=== PATIENT | female | born 1990 | race Caucasian/White ===

== ENCOUNTER 2017-10-16 23:58 | Inpatient (IN) | payer BC, OTHER ==
[2017-10-17] MEDS: ASPIRIN CHEWABLE 81 MG TABLET. PO (00:26)
[2017-10-17 00:37] LABS: BASO # 0.2 x10^3/uL (0.0-0.2); BASO % 2 % (0-3); EOS # 1.1 x10^3/uL (0.0-0.7); EOS % 9 % (0-3); HEMATOCRIT 40.2 % (36.0-47.0); HEMOGLOBIN 13.5 g/dL (12.0-15.5); LYMPH % 33 % (24-48); MEAN CORPUSCULAR HEMOGLOBIN 30 pg (25-35); MEAN CORPUSCULAR HGB CONC 34 g/dL (31-37); MEAN CORPUSCULAR VOLUME 89 fL (79-100); MONO # 0.7 x10^3/uL (0.0-1.1); MONO % 6 % (0-9); NEUT # 6.1 x10^3uL (1.8-7.7); NEUT % 51 % (31-73); PLATELET COUNT 276 x10^3/uL (140-400); RED BLOOD COUNT 4.51 x10^6/uL (3.50-5.40); RED CELL DISTRIBUTION WIDTH 15.1 % (11.5-14.5); WHITE BLOOD COUNT 12.1 x10^3/uL (4.0-11.0)
[2017-10-17 00:40] LABS: ADD MAN DIFF? YES
[2017-10-17] MEDS: IV NORMAL SALINE 1000ML BAG 1,000 ML IV ×4 (00:44→08:55)
[2017-10-17 00:46] LABS: ANION GAP 9 (6-14); BLOOD UREA NITROGEN 10 mg/dL (7-20); BUN/CREATININE RATIO 14 (6-20); CALCIUM 9.2 mg/dL (8.5-10.1); CARBON DIOXIDE 26 mmol/L (21-32); CHLORIDE 104 mmol/L (98-107); CREATININE 0.7 mg/dL (0.6-1.0); GFR 100.4; GLUCOSE 165 mg/dL (70-99); POTASSIUM 3.8 mmol/L (3.5-5.1); SODIUM 139 mmol/L (136-145)
[2017-10-17 00:52] LABS: ALBUMIN 3.6 g/dL (3.4-5.0); ALBUMIN/GLOBULIN RATIO 0.8 (1.0-1.7); ALK PHOS 28 U/L (46-116); ALT (SGPT) 33 U/L (14-59); AST (SGOT) 17 U/L (15-37); TOTAL BILIRUBIN 0.1 mg/dL (0.2-1.0); TOTAL PROTEIN 7.9 g/dL (6.4-8.2)
[2017-10-17 00:53] LABS: TROPONINI < 0.017 ng/mL (0.000-0.055)
[2017-10-17 00:59] LABS: THYROID STIM HORMONE (TSH) 4.161 uIU/mL (0.358-3.74)
[2017-10-17] MEDS ORDERED: CONTRAST GIVEN MC (01:15)
[2017-10-17 01:20] LABS: % BASOS 1 % (0-3); % EOS 5 % (0-5); % LYMPHS 33 % (24-48); % MONOS 5 % (0-10); % SEGS 56 % (35-66); PLT ESTIMATE ADEQUATE (ADEQUATE)
[2017-10-17 01:28] LABS: BILIRUBIN,URINE SMALL (NEG); CLARITY,URINE CLOUDY; COLOR,URINE AMBER; GLUCOSE,URINE NEGATIVE (NEG); NITRITE,URINE NEGATIVE (NEG); PROTEIN,URINE 100 mg/dL (NEG-TRACE)
[2017-10-17 01:29] LABS: URINE HCG POC HCG NEGATIVE (Negative)
[2017-10-17 01:34] LABS: AMORPHOUS SEDIMENT,UR PRESENT /HPF; BACTERIA,URINE MODERATE /HPF (0-FEW); SQUAMOUS EPITHELIAL CELL,UR MOD /LPF
[2017-10-17] MEDS: IOHEXOL 300 MG/ML 100ML VIAL. IV (01:43)
[2017-10-17] MEDS ORDERED: ONDANSETRON PF 4 MG/2 ML VIAL. IV (02:15)
[2017-10-17] MEDS ORDERED: ACETAMINOPHEN 325 MG TABLET. PO (02:15)
[2017-10-17] MEDS ORDERED: NITROGLYCERIN SUBLINGUAL 0.4 MG BOTTLE OF 25. SL (02:15)
[2017-10-17] MEDS ORDERED: fentaNYL PF VIAL 100 MCG/2 ML VIAL IV (02:15)
[2017-10-17 05:41] LABS: TROPONINI < 0.017 ng/mL (0.000-0.055)
[2017-10-17 08:42] LABS: TROPONINI < 0.017 ng/mL (0.000-0.055)
[2017-10-17] MEDS ORDERED: LEVONORGESTREL ETH ESTRADIOL PO (09:00)
[2017-10-17] MEDS ORDERED: metFORMIN XR 500 MG TAB.ER.24H PO (09:00)
[2017-10-17 13:22] LABS: CHOLESTEROL 154 mg/dL (0-200); HDLC 55 mg/dL (40-60); LDLC 73 mg/dL (0-100); NON-HDL CHOLESTEROL 99 mg/dL (0-129); TRIGLYCERIDES 131 mg/dL (0-150); VLDLC 26 mg/dL (0-40)
[2017-10-17 13:24] LABS: CHOLESTEROL/HDL RATIO 2.8
[2017-10-17] MEDS: buPROPion XL 150 MG TAB.ER.24H. PO (13:45)
[2017-10-17] MEDS: LEVOTHYROXINE 75 MCG TABLET PO (13:46)
[2017-10-17] MEDS: METOPROLOL TART IMMED RELEASE 25 MG TABLET. PO (13:49)
[2017-10-19] MEDS ORDERED: metFORMIN 500 MG TABLET PO (08:00)
== END 2017-10-17 17:00 | disposition home or self-care (01) | DRG 309 ==
LOC: ER 23:58 → ED HOLD 10-17 02:04 → 4 NORTH 10-17 04:42
DX: R00.2 Palpitations (principal); Z68.43 Body mass index [BMI] 50.0-59.9, adult; E66.01 Morbid (severe) obesity due to excess calories; E88.81 Metabolic syndrome and other insulin resistance; K76.0 Fatty (change of) liver, not elsewhere classified; R07.89 Other chest pain; E03.9 Hypothyroidism, unspecified; E11.9 Type 2 diabetes mellitus without complications; F17.210 Nicotine dependence, cigarettes, uncomplicated; I10 Essential (primary) hypertension; Z82.49 Family history of ischemic heart disease and other diseases of the circulatory system; E05.90 Thyrotoxicosis, unspecified without thyrotoxic crisis or storm; F32.9 Major depressive disorder, single episode, unspecified; R00.0 Tachycardia, unspecified
CPT/HCPCS: 36415; 71045; 71275; 80053; 80061; 81001; 81025; 84443; 84481; 84484; 85007; 85025; 87086; 93005; 93306; 96360; 96361; 99285; 99285-25; J7030; Q9967

== ENCOUNTER → 2017-12-15 | Outpatient (CLI) | payer BC | END | disposition home or self-care (01) | LOC: KCIC 08:03 | DX: M54.30 Sciatica, unspecified side (principal); G89.29 Other chronic pain; R20.0 Anesthesia of skin; M47.896 Other spondylosis, lumbar region | CPT/HCPCS: 72110 ==